=== PATIENT | male | born 1935 | race Caucasian/White ===

== ENCOUNTER → 2018-01-04 09:23 | Outpatient (CLI) | payer MEDICARE, BC, SELFPAY | PROVIDERS: PCP Family Medicine; Visit Provider Internal Medicine Cardiovascular Disease | DX: R42 Dizziness and giddiness (principal) | CPT/HCPCS: 0298T ==

== ENCOUNTER 2018-01-30 01:00 | Outpatient (CLI) | payer MEDICARE, BC, SELFPAY ==
--- NOTE | 2018-01-30 14:10 | MERGE_ITS ---
*[facility]* *[facility]* [address] [place] [address] Date of study: 01/30/2018 Transthoracic Echocardiography M-mode, complete 2D, complete spectral Doppler, and color Doppler *STUDY CONCLUSIONS* Impressions: The patient was in atrial fibrillation throughout study. This rhythm can interfere with accurate global and segmental wall motion analysis. Mildly reduced LV function, dilated RA/RV, severe TR. Summary: 1. Left ventricle: The cavity size was normal. Wall thickness was normal. Systolic function was mildly reduced. The estimated ejection fraction was 45-50%. Diffuse hypokinesis. 2. Aortic valve: There was trivial regurgitation. 3. Mitral valve: There was mild to moderate regurgitation directed eccentrically and posteriorly. 4. Left atrium: The atrium was mildly dilated. 5. Right ventricle: The cavity size was mildly dilated. Wall thickness was normal. Systolic function was low normal. 6. Right atrium: The atrium was moderately dilated. 7. Tricuspid valve: There was severe regurgitation. 8. Pulmonary arteries: Pulmonary systolic pressure was mildly increased. PA peak pressure: 35mm Hg (S). *PATIENT PRESENTATION* Height: 180.3cm ((71in) ) S/D Pressure: 112 / 77 Weight: 54.4kg ((119.7lb) ) BSA: 1.63m^2 Test start time: 02:10 PM. Test stop time: 03:10 PM. PERFORMING Unknown ORDERING Pierce Conde REFERRING Pierce Conde PERFORMING [facility] EMBROIDERY OPERATOR RT Bertha (R)(AMBER)ADILIA *PROCEDURE DATA* Procedure information: The patient was identified by two identifiers. This study was interpreted by [facility]. Pertinent images and digital data are archived for permanent storage and are available for subsequent review. Comparison was made to the study of 02/12/2013. Study status: Routine. Transthoracic echocardiography. M-mode, complete 2D, complete spectral Doppler, and color Doppler. A Transthoracic Echocardiogram was performed. Scanning was performed from the parasternal, apical, subcostal, and suprasternal notch acoustic windows. Images were obtained using an [id number] cardiac ultrasound machine. Study completion: The patient tolerated the procedure well. History: PMH: Persistent afib. *CARDIAC ANATOMY* Left ventricle: The cavity size was normal. Wall thickness was normal. Systolic function was mildly reduced. The estimated ejection fraction was 45-50%. Diffuse hypokinesis. Aortic valve: Trileaflet; mildly thickened leaflets. Mobility was not restricted. Doppler: Transvalvular velocity was within the normal range. There was no stenosis. There was trivial regurgitation. VTI ratio of LVOT to aortic valve: 0.79. Valve area (VTI): 2.7cm^2. Indexed valve area (VTI): 1.6cm^2/m^2. Peak velocity ratio of LVOT to aortic valve: 0.69. Valve area (Vmax): 2.3cm^2. Indexed valve area (Vmax): 1.4cm^2/m^2. Mean velocity ratio of LVOT to aortic valve: 0.73. Valve area (Vmean): 2.5cm^2. Indexed valve area (Vmean): 1.5cm^2/m^2. Mean gradient (S): 1.6mm Hg. Peak gradient (S): 2.7mm Hg. Aorta: Aortic root: The aortic root was normal in size. Mitral valve: Mildly thickened leaflets. Mobility was not restricted. Doppler: Transvalvular velocity was within the normal range. There was no evidence for stenosis. There was mild to moderate regurgitation directed eccentrically and posteriorly. Valve area by pressure half-time: 4.8cm^2. Indexed valve area by pressure half-time: 2.9cm^2/m^2. Peak gradient (D): 2.1mm Hg. Left atrium: The atrium was mildly dilated. Right ventricle: The cavity size was mildly dilated. Wall thickness was normal. Systolic function was low normal. Pulmonic valve: Doppler: Transvalvular velocity was within the normal range. There was no evidence for stenosis. There was mild regurgitation. Peak gradient (S): 0.8mm Hg. Tricuspid valve: Mildly thickened leaflets. Doppler: Transvalvular velocity was within the normal range. There was no evidence for stenosis. There was severe regurgitation. Pulmonary artery: Pulmonary systolic pressure was mildly increased. Right atrium: The atrium was moderately dilated. Pericardium: There was no pericardial effusion. Systemic veins: Inferior vena cava: Well visualized. The vessel was patent and normal in size. The respirophasic diameter changes were in the normal range (greater than or equal to 50%), consistent with normal central venous pressure. Baseline ECG: Atrial fibrillation. Measurements Left ventricle Value Reference LV ID, ED, PLAX 4.0 cm 3.5 - 6.0 LV ID, ES, PLAX 3.3 cm 2.1 - 4.0 LV PW thickness, ED, PLAX 0.9 cm LV end-diastolic volume, 1-p A2C 75 ml LV ejection fraction, 1-p A2C 49 % LV end-diastolic volume, 1-p A4C 62 ml LV ejection fraction, 1-p A4C 47 % LV e', lateral 0.125 m/sec LV E/e', lateral 6 LV e', medial 0.081 m/sec LV E/e', medial 9 LV e', average 0.103 m/sec LV E/e', average 7 Ventricular septum Value Reference IVS thickness, ED, PLAX 1.0 cm LVOT Value Reference LVOT ID, A-P 2.1 cm LVOT area 3.4 cm^2 LVOT peak velocity, S 0.56 m/sec LVOT mean velocity, S 0.44 m/sec LVOT VTI, S 9.4 cm LVOT peak gradient, S 1.3 mm Hg LVOT mean gradient, S 0.8 mm Hg Stroke volume (SV), LVOT DP 32 ml Stroke index (SV/bsa), LVOT DP 19 ml/m^2 Aortic valve Value Reference Aortic valve peak velocity, S 0.8 m/sec Aortic valve mean velocity, S 0.6 m/sec Aortic valve VTI, S 11.9 cm Aortic mean gradient, S 1.6 mm Hg Aortic peak gradient, S 2.7 mm Hg VTI ratio, LVOT/AV 0.79 Aortic valve area, VTI 2.7 cm^2 Velocity ratio, peak, LVOT/AV 0.69 Aortic valve area, peak velocity 2.3 cm^2 Velocity ratio, mean, LVOT/AV 0.73 Aortic valve area, mean velocity 2.5 cm^2 Aortic valve area/bsa, mean velocity 1.5 cm^2/m^2 Aorta Value Reference Aortic root ID, ED 3.2 cm Ascending aorta ID, A-P, S 3.0 cm RVOT Value Reference RVOT VTI, S 6.1 cm Left atrium Value Reference LA ID, A-P, ES 3.5 cm LA ID/bsa, A-P 2.2 cm/m^2 <=2.2 LA area, ES, A4C 22.8 cm^2 8.8 - 23.4 LA area, ES, A2C 20 cm^2 LA volume/bsa, ES, 1-p A4C 42 ml/m^2 LA volume, ES, 2-p 59 ml LA volume/bsa, ES, 2-p 36 ml/m^2 LA/aortic root ratio 1.11 Mitral valve Value Reference Mitral E-wave peak velocity 0.72 m/sec Mitral deceleration time 159 ms 150 - 230 Mitral pressure half-time 46 ms Mitral peak gradient, D 2.1 mm Hg Mitral valve area, PHT, DP 4.8 cm^2 Pulmonary arteries Value Reference PA pressure, S, DP (H) 35 mm Hg <=30 Tricuspid valve Value Reference Tricuspid regurg peak velocity 2.5 m/sec Tricuspid peak RV-RA gradient 25.5 mm Hg Right atrium Value Reference RA area, ES, A4C (H) 24.8 cm^2 8.3 - 19.5 Systemic veins Value Reference Estimated CVP 10 mm Hg Right ventricle Value Reference RV pressure, S, DP (H) 36 mm Hg <=30 Pulmonic valve Value Reference Pulmonic peak gradient, S 0.8 mm Hg Legend: (L) and (H) prince values outside specified reference range. I have personally reviewed the images and have reviewed and edited the reported findings. Electronically signed by Valarie Montes 01/30/2018 18:29
== END 2018-01-30 01:20 ==
PROVIDERS: PCP Family Medicine; Visit Provider Student in an Organized Health Care Education/Training Program
DX: I48.91 Unspecified atrial fibrillation (principal); I08.3 Combined rheumatic disorders of mitral, aortic and tricuspid valves; I51.7 Cardiomegaly
CPT/HCPCS: 93306; 71046

== ENCOUNTER 2018-01-30 05:46 | Outpatient (CLI) | payer MEDICARE, BC, SELFPAY ==
--- NOTE | 2018-01-30 12:55 | DI.RAD_ITS ---
SYMPTOMS/DIAGNOSIS: CHRONIC COUGH, R05 CHEST X-RAY, PA AND LATERAL: Comparison is 10/08/17. The heart size and pulmonary vasculature are within normal limits. The lungs are clear. The lungs do appear to be hyperinflated, raising the question of underlying COPD. No infiltrates, effusions or pneumothoraces are identified. Degenerative changes are seen in the spine. IMPRESSION: 1. No acute pulmonary process. 2. Hyperinflation of the lungs raising the question of underlying COPD.
== END 2018-01-30 06:06 ==
PROVIDERS: PCP Family Medicine; Visit Provider Internal Medicine
DX: R05 Cough (principal); R91.8 Other nonspecific abnormal finding of lung field
CPT/HCPCS: 71046

== ENCOUNTER → 2018-03-13 11:12 | Outpatient (BNVA) | payer MEDICARE, BC, SELFPAY | PROVIDERS: PCP Family Medicine; Visit Provider Student in an Organized Health Care Education/Training Program | DX: I48.1 Persistent atrial fibrillation (principal); I50.9 Heart failure, unspecified; Z79.01 Long term (current) use of anticoagulants; R53.82 Chronic fatigue, unspecified; I11.0 Hypertensive heart disease with heart failure | CPT/HCPCS: 99214 ==

== ENCOUNTER → 2018-06-20 10:57 | Outpatient (BNVA) | payer MEDICARE, BC, SELFPAY | PROVIDERS: PCP Family Medicine; Referring Provider Family Medicine; Visit Provider Orthopaedic Surgery | DX: M25.512 Pain in left shoulder (principal); I10 Essential (primary) hypertension; G89.29 Other chronic pain | CPT/HCPCS: 99211; 99213 ==

== ENCOUNTER 2018-06-25 00:41 | Outpatient (CLI) | payer MEDICARE, BC, SELFPAY ==
--- NOTE | 2018-06-25 09:36 | DI.MRI_ITS ---
SYMPTOM/DIAGNOSIS: LT SHOULDER PAIN, ? ROTATOR CUFF TEAR LEFT SHOULDER MRI: Proton density and fat suppressed T 2 coronal and T 1 and fat suppressed T 2 sagittal sequences were performed. The exam is limited by patient motion. There is spurring at the AC joint which also shows some fluid. There is fluid in the subacromial subdeltoid bursa. A subchondral cyst is seen in the humeral head. The rotator cuff tendons appear grossly intact. Degenerative changes are seen at the glenoid. IMPRESSION: Limited exam due to patient motion. Degenerative changes of the AC joint and glenohumeral joint. No rotator cuff tear is seen. There is fluid in the subacromial subdeltoid bursa which could indicate bursitis.
== END 2018-06-25 01:01 ==
PROVIDERS: PCP Family Medicine; Visit Provider Orthopaedic Surgery
DX: M25.512 Pain in left shoulder (principal); M19.012 Primary osteoarthritis, left shoulder
CPT/HCPCS: 73221

== ENCOUNTER → 2018-07-04 10:56 | Outpatient (BNVA) | payer MEDICARE, BC, SELFPAY | PROVIDERS: PCP Family Medicine; Referring Provider Family Medicine; Visit Provider Orthopaedic Surgery | DX: M19.012 Primary osteoarthritis, left shoulder (principal) | CPT/HCPCS: 99211; 99213 ==

== ENCOUNTER 2018-07-12 09:49 | Outpatient (CLI) | payer MEDICARE, BC, SELFPAY | END 2018-07-12 10:09 | PROVIDERS: PCP Family Medicine; Visit Provider Orthopaedic Surgery | DX: M25.512 Pain in left shoulder (principal); M19.012 Primary osteoarthritis, left shoulder; Z01.818 Encounter for other preprocedural examination; I10 Essential (primary) hypertension ==

== ENCOUNTER 2018-07-19 10:22 | Inpatient (IN) | payer MEDICARE, BC, SELFPAY ==
[2018-07-19] VITALS (29 sets, daily range): BP systolic 83–143; BP diastolic 56–110; PULSE 55–120; RESP 12–21; TEMP 35.9–36.6; O2SAT 95–100
[2018-07-19] MEDS: Lactated Ringers 1,000 ML 80 ML IV ×3 (07:04→14:17)
[2018-07-19] MEDS: methylPREDNISolone ACETATE 80 MG/ML VIAL (08:09)
--- NOTE | 2018-07-19 09:02 | DI.CT_ITS ---
SYMPTOM/DIAGNOSIS: HYPOXIA, HYPOTENSION, ? PE, ? STROKE NONCONTRAST HEAD CT: A noncontrast cranial CT was performed. There is moderate generalized cerebral atrophy. There is no evidence of acute intracranial hemorrhage, mass effect or midline shift. Note is made of apparent chronic sinus disease involving the frontal, ethmoid, maxillary and sphenoid sinuses. The mastoid air cells are clear as visualized. Orbital and temporal bone structures appear intact. CONCLUSION: No evidence of acute intracranial process. PE CHEST CT: CT angiography was performed with multi slice acquisition and multi planar and 3D reconstruction. CT angiography of the chest was performed with a bolus infusion of 100 cc's of Omnipaque 350. There is an endotracheal tube in position. The lungs are clear and normally expanded. No pleural effusion is seen. No mediastinal or hilar adenopathy is seen. Tracheobronchial tree appears intact. No evidence of pulmonary embolic disease. Bolus timing was excellent for pulmonary arterial circulation but the aorta is non opacified. Images obtained through the upper abdomen show grossly unremarkable appearance of visualized portions of the liver, spleen, adrenals, kidneys and pancreas. CONCLUSION: No evidence of pulmonary embolic disease.
[2018-07-19 09:13] LABS: BE -0.3 mmol/L (-3-3); HCO3 26 mmol/L (22-28); pCO2 51 mmHg (34-47); pH 7.32 (7.35-7.45); pO2 545 mmHg (83-108)
[2018-07-19 09:16] LABS: Abs Immature Grans 0.01 k/cumm (0.0-0.09); Absolute Basophil Count 0.03 k/cumm (0.0-0.2); Absolute Lymphocyte Count 0.94 k/cumm (1.2-3.4); Absolute Monocyte Count 0.39 k/cumm (0.11-0.7); Absolute Neutrophil Count 5.62 k/cumm (1.2-6.7); Basophils % 0.4; Eosinophils % 4.1; HCT 36.9 % (40.0-50.0); HGB 12.3 g/dL (13.5-17.5); Immature Grans % 0.1; Lymphocytes % 12.9; Mean Corp. HGB Concentration 33.3 g/dL (32.0-36.0); Mean Corpuscular Hemoglobin 33.2 pg (27.0-33.0); Mean Corpuscular Volume 99.7 fL (80-95); Monocytes % 5.3; Neutrophils % 77.2; Platelet Count 169 x1000/uL (130-400); RBC Distribution Width 12.2 % (11.8-14.1); White Blood Cell Count 7.29 k/cumm (4.4-10.8)
[2018-07-19 09:32] LABS: ALT 8 U/L (12-78); AST 16 U/L (15-37); Albumin 2.6 g/dL (3.4-5.0); Alkaline Phosphatase 77 U/L (46-116); Anion Gap 5.9 mmol/L (3-11); BUN 25 mg/dL (7-18); CO2 27.1 mmol/L (21.0-32.0); CREATININE 1.04 mg/dL (0.70-1.30); Calcium 7.6 mg/dL (8.5-10.1); Chloride 109 mmol/L (98-107); Glucose 143 mg/dL (70-100); Potassium 4.7 mmol/L (3.5-5.1); Sodium 142 mmol/L (136-145); Total Protein 5.8 g/dL (6.4-8.2); Troponin I 0.06 ng/mL (0.00-0.06)
[2018-07-19] MEDS: Omnipaque 350 MG/ML 100 ML BTL IJ (09:40)
[2018-07-19 09:42] LABS: D-Dimer 359 ng/mlFEU (<500)
[2018-07-19] MEDS: Lactated Ringers 1,000 ML 50 ML IV (10:10)
[2018-07-19 10:48] LABS: sO2 > 99 % (94-98)
[2018-07-19 12:02] LABS: ALT 7 U/L (12-78); AST 21 U/L (15-37); Albumin 3.1 g/dL (3.4-5.0); Alkaline Phosphatase 95 U/L (46-116); Anion Gap 7.3 mmol/L (3-11); BUN 24 mg/dL (7-18); Bilirubin, Total 1.1 mg/dL (0.2-1.0); CO2 27.7 mmol/L (21.0-32.0); Calcium 8.2 mg/dL (8.5-10.1); Chloride 107 mmol/L (98-107); Glucose 99 mg/dL (70-100); Magnesium 1.9 mg/dL (1.8-2.4); Potassium 4.4 mmol/L (3.5-5.1); Sodium 142 mmol/L (136-145); Total Protein 6.7 g/dL (6.4-8.2); Troponin I 0.05 ng/mL (0.00-0.06)
--- NOTE | 2018-07-19 12:51 | HPE_ITS ---
Date of service: 07/19/18 Time of Service: 12:41 Assessment and Plan (1) Altered mental state: Current visit: Yes Status: Acute Patient developed altered mental status, obtundation after the induction of anesthesia. He did not come out of anesthesia in a normal manner. He had some low blood pressures, did not respond to commands. There was initial concern for acute cerebrovascular accident but this was ruled out with a normal head CT and subsequent normalization of his mental status. At this point it appears that he had an unusual reaction to anesthetic medications requiring prolonged time for clearance of the medication (propofol) . Fortunately he appears to be clearing and is stable for transfer from the PACU to the medical surgical floor. We will continue to monitor in observation status overnight. (2) Left shoulder pain: Current visit: No Status: Chronic Patient was admitted for elective left distal clavicle resection. He did not get the surgical procedure because of the complications noted above. Dr. Betancur was able to inject the shoulder while he was out. He may see some benefit from the steroid injection. Further follow-up with Dr. Betancur as an outpatient. Qualifiers: Chronicity: chronic Qualified Code(s): M25.512 - Pain in left shoulder; G89.29 - Other chronic pain History of Present Illness Chief Complaint: Hypotension/ Alterred Mental Status Narrative: This is an 83-year-old man who presented today for elective surgical excision of his left distal clavicle for chronic left shoulder pain. He was brought to the operating room and was being induced for anesthesia when his blood pressure dropped to 84/54. They were unable to get pulse oximetry readings. His anesthesia was stopped and he was started on ephedrine and got 40 mg of vasopressin which seemed to help his blood pressure. Despite full reversal of his anesthetic agents he remained unresponsive. Dr. Betancur called us down to the operating room to evaluate him for the possibility of stroke. He was intubated with an endotracheal tube to replace the LMA. He was brought to the CAT scanner and had a CAT scan of the head and CTA of the chest. There was no evidence of a CVA. There was no evidence of a PE. He was brought back to the PACU and monitored on the vent. We cut back on his sedation and reversed his paralytic over the next hour. He was given a spontaneous breathing trial and did well so he was extubated at 10:34 AM. He was able to breathe on his own and manage his secretions well and over the next 30 minutes his sensorium seemed to clear and he began to wake up and respond appropriately. He is being admitted to [facility] for further monitoring and observation status. Review of Systems Review of Systems He was initially obtunded and unable to give a review of systems. Once he woke up he was able to let us know that he had no specific concerns or complaints Constitutional Reports system reviewed and no additional complaints, except as docu Cardiovascular Denies chest pain at rest Respiratory Reports system reviewed and no additional complaints, except as docu Gastrointestinal Reports system reviewed and no additional complaints, except as docu Genitourinary Reports system reviewed and no additional complaints, except as docu Musculoskeletal Reports system reviewed and no additional complaints, except as docu Comments: Left shoulder discomfort was not an immediate problem. Neurologic Reports as per [facility] Psychiatric Reports depression and Reports other (Easily becomes tearful, still talking about his who is ) [facility] Medical History Atrial fibrillation Essential hypertension Glaucoma Hiatal hernia Reflex sympathetic dystrophy of upper extremity Surgical History Colonoscopy - MAC HEMITHYROIDECTOMY Family History Mother Heart disease Father Heart disease Sister No problems noted. Brother No problems noted. Grandfather Diabetes Grandfather No problems noted. Social History Smoking and Tabacco status: Former Tobacco Use Meds Home Medications Medication Instructions Recorded Confirmed Type dorzolamide 1 drp OPHTHALMIC BID drp 07/31/12 07/19/18 History [id number]-lycopen-lutein 1 tab PO DAILY 08/01/13 07/19/18 History [Centrum Silver Tablet] levothyroxine 88 mcg PO DAILY #60 tab-cap 09/10/17 07/19/18 Rx apixaban [Eliquis] 2.5 mg PO BID #60 tab-cap 09/27/17 07/19/18 Rx diltiazem HCl [Cartia XT] 120 mg PO DAILY 07/12/18 07/19/18 History mirtazapine 15 mg PO HS 07/12/18 07/19/18 History Allergies Allergy/AdvReac Type Severity Reaction Status Date / Time No Known Allergies Allergy Verified 07/19/18 06:36 Exam Narrative Exam Narrative: My initial encounter with him he was completely obtunded and unable to respond to commands. He would flinch and pushed her hand away to any noxious stimuli. He appeared to be using all 4 extremities without any apparent decrement of function. As noted in HPI once extubated and over an ensuing 30- minute time. He began to wake up and communicate coherently Const Nutritional Appearance: average body habitus Orientation: obtunded (Woke up and became coherent after extubation) HENMT Head: normal to inspection Ears: hearing grossly normal bilaterally Face and sinus: normal facial exam Mouth: oral mucosae normal Teeth and gingiva: dentition normal Eyes Pupils: PERRL (About 2 mm) Neck Neck: normal visual inspection Thyroid: thyroid normal (Status post hemithyroidectomy) Chest Chest: normal inspection of the chest Resp Effort & Inspection: normal respiratory effort Auscultation: clear to auscultation bilaterally Cardio Rate: regular rate Rhythm: regular rhythm GI Inspection: normal to inspection Palpation: soft and nontender Male General Exam: Yes normal external exam (Vogel catheter draining clear urine) Back/Spine/Pelvis Thoracic/Lumbar Spine: thoracic and lumbar spine normal to inspection Skin General skin exam: no rashes or lesions noted Neuro General: moves all extremities Speech: speech normal Motor: strength 5/5 throughout Sensory Exam: no sensory deficits noted Extrem General: no edema Psych Mental Status: other (Previously obtunded he was groggy but gradually regaining function) Speech and Movement: speech and movement normal Mood: labile mood and other (Previously obtunded he was groggy but gradually regaining function) Affect: sad Attitude: cooperative Thought Process: impoverished Thought Content: normal Insight: fair Results Imaging CT scan - chest: report reviewed (CT angiogram showed no evidence of PE) Imaging Studies: Head CT showed no evidence of CVA or other abnormality Labs : 07/19/18 08:50 07/19/18 11:40 Laboratory Results - last 24 hr 07/19/18 07/19/18 07/19/18 08:42 08:42 08:50 WBC Cancelled 7.29 RBC Cancelled 3.70 L Hgb Cancelled 12.3 L Hct Cancelled 36.9 L MCV Cancelled 99.7 H MCH Cancelled 33.2 H MCHC Cancelled 33.3 RDW Cancelled 12.2 Plt Count Cancelled 169 MPV Cancelled 11.0 Immature Gran % 0.1 Neutrophils % 77.2 Lymphocytes % 12.9 Monocytes % 5.3 Eosinophils % 4.1 Basophils % 0.4 Absolute Neutrophils 5.62 Absolute Lymphocytes 0.94 L Absolute Monocytes 0.39 Absolute Eosinophils 0.30 Absolute Basophils 0.03 D-Dimer Sample Site pCO2 pO2 O2 Saturation ABG pH ABG HCO3 ABG Total CO2 ABG Base Excess Oxygen Liter Flow FiO2 Sodium Cancelled Potassium Cancelled Chloride Cancelled Carbon Dioxide Cancelled Anion Gap Cancelled BUN Cancelled Creatinine Cancelled Estimated GFR/1.73 m2 Cancelled Glucose Cancelled Calcium Cancelled Magnesium Total Bilirubin Cancelled AST Cancelled ALT Cancelled Alkaline Phosphatase Cancelled Troponin I Cancelled Total Protein Cancelled Albumin Cancelled 07/19/18 07/19/18 07/19/18 08:50 08:50 08:50 WBC RBC Hgb Hct MCV MCH MCHC RDW Plt Count MPV Immature Gran % Neutrophils % Lymphocytes % Monocytes % Eosinophils % Basophils % Absolute Neutrophils Absolute Lymphocytes Absolute Monocytes Absolute Eosinophils Absolute Basophils D-Dimer 359 Sample Site Not Applicable pCO2 51 H pO2 545 H O2 Saturation > 99 H ABG pH 7.32 L ABG HCO3 26 ABG Total CO2 ABG Base Excess -0.3 Oxygen Liter Flow FiO2 Sodium 142 Potassium 4.7 Chloride 109 H Carbon Dioxide 27.1 Anion Gap 5.9 BUN 25 H Creatinine 1.04 Estimated GFR/1.73 m2 >= 60.00 Glucose 143 H Calcium 7.6 L Magnesium Total Bilirubin 1.0 AST 16 ALT 8 L Alkaline Phosphatase 77 Troponin I 0.06 Total Protein 5.8 L Albumin 2.6 L 07/19/18 07/19/18 07/19/18 08:54 09:11 11:40 WBC RBC Hgb Hct MCV MCH MCHC RDW Plt Count MPV Immature Gran % Neutrophils % Lymphocytes % Monocytes % Eosinophils % Basophils % Absolute Neutrophils Absolute Lymphocytes Absolute Monocytes Absolute Eosinophils Absolute Basophils D-Dimer Sample Site Cancelled Cancelled pCO2 Cancelled Cancelled pO2 Cancelled Cancelled O2 Saturation Cancelled Cancelled ABG pH Cancelled Cancelled ABG HCO3 Cancelled Cancelled ABG Total CO2 Cancelled Cancelled ABG Base Excess Cancelled Cancelled Oxygen Liter Flow Cancelled Cancelled FiO2 Cancelled Cancelled Sodium 142 Potassium 4.4 Chloride 107 Carbon Dioxide 27.7 Anion Gap 7.3 BUN 24 H Creatinine 1.00 Estimated GFR/1.73 m2 >= 60.00 Glucose 99 Calcium 8.2 L Magnesium 1.9 Total Bilirubin 1.1 H AST 21 ALT 7 L Alkaline Phosphatase 95 Troponin I 0.05 Total Protein 6.7 Albumin 3.1 L Last Vital Signs Temp 36.6 C 07/19/18 12:23 Pulse 90 07/19/18 12:23 Resp 19 07/19/18 12:23 BP 133/80 07/19/18 12:23 Pulse Ox 95 07/19/18 12:23
[2018-07-19 13:43] LABS: Troponin I 0.05 ng/mL (0.00-0.06)
--- NOTE | 2018-07-19 14:14 | ROE_ITS ---
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 POSTOPERATIVE DIAGNOSIS: Same. PROCEDURE: Attempted excision left distal clavicle, aborted. SURGEON: Marco Betancur M.D. OBSTETRICIAN AND GYNAECOLOGIST: Gabbi Montalvo PA-C ANESTHESIA: General via LMA by Shiela Guillen CRNA INDICATIONS: This patient is an 83-year-old male who has been troubled by bilateral shoulder pain, i nitially worse on the left side, and now he's having some symptoms on the right. He failed to respon d to conservative treatments. He underwent an MRI which showed severe AC joint arthritis and a large osteophyte inferiorly, impinging on the rotator cuff. He showed evidence of inflammation of the rot ator cuff, particularly involving the supraspinatus; but no evidence of any full-thickness tear. He was also showing some signs of dementia, although he is able to manage his affairs fairly well. He's often forgetful, calling the office frequently to try to verify appointments and appropriate medicat ions. We had arranged to have his pharmacy prepare his meds on a daily schedule, because he had been on Eliquis for chronic atrial fibrillation. This was stopped 5 days to todays' planned procedure. He also takes Diltiazem for rate control of his atrial fibrillation. He's had an echocardiogram that did not show any significant abnormalities. The patient was greeted in the Day Surgery holding area. I marked his shoulder. He was alert, orien vickey and anxious to proceed. He was brought to the operating suite and under Propofol anesthesia, as we did not want to use inhala tional gases to exacerbate his early dementia, he had an LMA placed. He had mild hypotension at this point and this was initially treated with pressors. We also had difficulty getting a good pulse oxi metry measurement, it was somewhat intermittent. We finally got fairly consistent pulse oximetry karen surements in his second toe, and eventually on his nasal ala. His pulse oximetry values were in the 90's to 100. However, his hypotension persisted, and when we put him in the beach chair position, it was exacerbated and did not respond to pressors. It was felt that it was unsafe to proceed with any type of surgery, and no incision was made. Sterile drapes had been applied but no incision was made . At this point we elected to abort the procedure for some unknown cardiac event or perhaps a CVA or pulmonary embolism. I did inject his AC joint with Depo-Medrol and 6 cc's of Marcaine, 0.5%, to provide him at least with some analgesia, assuming that the patient would wake up from the LMA/Propofol anesthesia. However, this was not the case. The patient continued to have relative hypotension and poor perfusion. His p upils were reactive but sluggish, and they were symmetrical. At this point the concern was raised th at he may have sustained a stroke, or perhaps a pulmonary embolism. While still having the L[facility] in [facility], I consulted personally with the hospitalists, both Dr. Arreaga and Dr. Rose. Dr. Rose came do wn to the Operating Room to review the situation. The plan at that point was to obtain a CT scan of the head. In addition to that, Dr. Arreaga's recommendation to get a CTA for a pulmonary embolism. The patient was starting to show motion of the upper and lower extremities, but he was still not steven thing independently on his own, and it was felt that even with the LMA removed, which was helpful in decreasing his combative behavior, he was still not appropriately responding to simple cessation of a nesthesia. The decision was then made to intubate he patient to get a CT scan - this would allow us to control his airway and also to allow an appropriate study being done. The CT scan was then done of the head without contrast. It did not show any intracranial process. T he CTA did not show any evidence of pulmonary embolism. The patient was brought back to the Recovery Room, still intubated, and over time he was gradually ex tubated and awoke with complete recovery of his faculties and no evidence of an acute intracerebral o r intracardiac process. His Troponin was .06, D-dimer was within normal limits; CBC showed a hemoglo bin of 12, white count of 7000, electrolyte function and creatinine were normal. The etiology of his failure to maintain a pressure under anesthesia and failure to wake up when the anesthesia, specific ally Propofol, was stopped is unclear at this time. He will be admitted for observation in the Intensive Care Unit. He has an arterial line in place.
[2018-07-19] MEDS: Normal Saline 1,000 ML 30 ML IV (14:58)
[2018-07-19] MEDS: Dorzolamide 2% 10 ML BTL OD (20:15)
[2018-07-19] MEDS: Mirtazapine 15 MG TAB PO (22:39)
[2018-07-20] VITALS (9 sets, daily range): BP systolic 102–119; BP diastolic 57–72; PULSE 85–127; RESP 17–20; TEMP 35.9–36.8; O2SAT 98–100
[2018-07-20] MEDS: Levothyroxine 88 MCG TAB PO (06:11)
[2018-07-20 07:12] LABS: Abs Immature Grans 0.02 k/cumm (0.0-0.09); Absolute Basophil Count 0.01 k/cumm (0.0-0.2); Basophils % 0.1; HCT 39.6 % (40.0-50.0); HGB 13.2 g/dL (13.5-17.5); Immature Grans % 0.1; Lymphocytes % 4.5; Mean Corp. HGB Concentration 33.3 g/dL (32.0-36.0); Mean Platelet Volume 10.7 fL (8.0-11.0); Neutrophils % 94.3; Platelet Count 171 x1000/uL (130-400); RBC Distribution Width 12.1 % (11.8-14.1); White Blood Cell Count 13.37 k/cumm (4.4-10.8)
[2018-07-20 07:13] LABS: Absolute Monocyte Count 0.13 k/cumm (0.11-0.7); Absolute Neutrophil Count 12.61 k/cumm (1.2-6.7)
[2018-07-20 07:22] LABS: Anion Gap 8.4 mmol/L (3-11); BUN 23 mg/dL (7-18); CO2 25.6 mmol/L (21.0-32.0); CREATININE 0.97 mg/dL (0.70-1.30); Calcium 8.1 mg/dL (8.5-10.1); Chloride 106 mmol/L (98-107); Glucose 128 mg/dL (70-100); Magnesium 1.8 mg/dL (1.8-2.4); Potassium 4.4 mmol/L (3.5-5.1); Sodium 140 mmol/L (136-145)
--- NOTE | 2018-07-20 08:43 | PGE_ITS ---
Date of Service Date of service: 07/20/18 Time of Service: 08:32 Assessment and Plan (1) Altered mental state: Current visit: Yes Status: Acute Atypical reaction to general anesthesia and specifically to propofol. No other anesthetic agents involved. I reviewed patients anesthetic records from [facility] thyroid surgery from 2017 and patient did have propofol, dilaudid, midazolam, and sevoflourane. He did have some hypotension on that occasion with systolic pressure in low 90s. This was not as extreme as our experience with blood pressures as low as 50's/48. Case discussed in detail with patient and his family as well as with hospitalist Dr. Santo. We will keep the patient overnight for one more day of observation and telemetry. D/C iv and redd in anticipation of discharge home tomorrow. Patient and family agree. Subjective Interval history since last seen: Awake, alert and orented. Daughter and her family had spent the night in patientsw room. Patients care and condition during anesthesia and attenmoted surgery discuswswed in detail including the negative head c.t. and negative c.t for pulmonary embolism. Patient has no recollection of any distress. His left shoulder feels better from the injection. Exam Extrem Other: Alert and oriented x 3. Able to move shoulder well. Redd catheter draining clear urine. Laabs unremarkable. Objective Objective Clinical Data: Abnormal lab results 07/19/18 07/19/18 07/19/18 Range/Units 08:50 08:50 08:50 WBC (4.4-10.8) k/cumm RBC 3.70 L (4.50-6.00) m/cumm Hgb 12.3 L (13.5-17.5) g/dL Hct 36.9 L (40.0-50.0) % MCV 99.7 H (80-95) fL MCH 33.2 H (27.0-33.0) pg Absolute Neutrophils (1.2-6.7) k/cumm Absolute Lymphocytes 0.94 L (1.2-3.4) k/cumm pCO2 51 H (34-47) mmHg pO2 545 H (83-108) mmHg O2 Saturation > 99 H (94-98) % ABG pH 7.32 L (7.35-7.45) Chloride 109 H (98-107) mmol/L BUN 25 H (7-18) mg/dL Glucose 143 H (70-100) mg/dL Calcium 7.6 L (8.5-10.1) mg/dL Total Bilirubin (0.2-1.0) mg/dL ALT 8 L (12-78) U/L Total Protein 5.8 L (6.4-8.2) g/dL Albumin 2.6 L (3.4-5.0) g/dL 07/19/18 07/20/18 07/20/18 Range/Units 11:40 06:50 06:50 WBC 13.37 H D (4.4-10.8) k/cumm RBC 4.00 L (4.50-6.00) m/cumm Hgb 13.2 L (13.5-17.5) g/dL Hct 39.6 L (40.0-50.0) % MCV 99.0 H (80-95) fL MCH (27.0-33.0) pg Absolute Neutrophils 12.61 H (1.2-6.7) k/cumm Absolute Lymphocytes 0.60 L (1.2-3.4) k/cumm pCO2 (34-47) mmHg pO2 (83-108) mmHg O2 Saturation (94-98) % ABG pH (7.35-7.45) Chloride (98-107) mmol/L BUN 24 H 23 H (7-18) mg/dL Glucose 128 H (70-100) mg/dL Calcium 8.2 L 8.1 L (8.5-10.1) mg/dL Total Bilirubin 1.1 H (0.2-1.0) mg/dL ALT 7 L (12-78) U/L Total Protein (6.4-8.2) g/dL Albumin 3.1 L (3.4-5.0) g/dL Vital Signs Temperature 97.7 F 07/20/18 05:57 Temperature Source Tympanic 07/20/18 05:57 Pulse 93 H 07/20/18 07:53 Pulse Rhythm Irregular 07/20/18 01:50 Respiratory Rate 17 07/20/18 05:57 Respiratory Effort 07/20/18 01:50 Respiratory Depth Shallow 07/20/18 01:50 Respiratory Pattern Normal 07/19/18 06:24 Blood Pressure 102/69 07/20/18 05:57 Pulse Oximetry 99 07/20/18 05:57 Respiratory End-tidal CO2 33 07/19/18 11:35 Oxygen Delivery Method Nasal Cannula 07/20/18 05:57 Oxygen Flow Rate 1 07/20/18 05:57 Fraction of Inspired Oxygen (FIO2) 21 07/19/18 10:24 Pain Level 0 07/19/18 13:23 Intake & Output 07/19/18 07/19/18 07/20/18 11:59 23:59 11:59 Intake Total 1500 / 2138.667 638.667 / 2138.667 Output Total 1050 / 1050 700 / 700 Balance 1500 / 1088.667 -411.333 / 1088.667 -700 / -700 Weight 150 lb 2.157 oz 145 lb 4.554 oz Intake: IV 1500 / 2138.667 638.667 / 2138.667 Output: Urine 1050 / 1050 700 / 700 Other: Urine Color Light Ramona Yellow Urine Appearance Clear Clear Comment PACU. PACU. Stool Size Small Stool Characteristics Formed Green Emesis Description None None Laboratory Results WBC 13.37 k/cumm (4.4-10.8) H D 07/20/18 06:50 RBC 4.00 m/cumm (4.50-6.00) L 07/20/18 06:50 Hgb 13.2 g/dL (13.5-17.5) L 07/20/18 06:50 Hct 39.6 % (40.0-50.0) L 07/20/18 06:50 MCV 99.0 fL (80-95) H 07/20/18 06:50 MCH 33.0 pg (27.0-33.0) 07/20/18 06:50 MCHC 33.3 g/dL (32.0-36.0) 07/20/18 06:50 RDW 12.1 % (11.8-14.1) 07/20/18 06:50 Plt Count 171 x1000/uL (130-400) 07/20/18 06:50 MPV 10.7 fL (8.0-11.0) 07/20/18 06:50 Immature Gran % 0.1 07/20/18 06:50 Neutrophils % 94.3 07/20/18 06:50 Lymphocytes % 4.5 07/20/18 06:50 Monocytes % 1.0 07/20/18 06:50 Eosinophils % 0.0 07/20/18 06:50 Basophils % 0.1 07/20/18 06:50 Absolute Neutrophils 12.61 k/cumm (1.2-6.7) H 07/20/18 06:50 Absolute Lymphocytes 0.60 k/cumm (1.2-3.4) L 07/20/18 06:50 Absolute Monocytes 0.13 k/cumm (0.11-0.7) 07/20/18 06:50 Absolute Eosinophils 0.00 k/cumm (0.0-0.7) 07/20/18 06:50 Absolute Basophils 0.01 k/cumm (0.0-0.2) 07/20/18 06:50 D-Dimer 359 ng/mlFEU (<500) 07/19/18 08:50 Sample Site Not Applicable 07/19/18 08:50 pCO2 51 mmHg (34-47) H 07/19/18 08:50 pO2 545 mmHg (83-108) H 07/19/18 08:50 O2 Saturation Cancelled 07/19/18 08:54 ABG pH 7.32 (7.35-7.45) L 07/19/18 08:50 ABG HCO3 26 mmol/L (22-28) 07/19/18 08:50 ABG Total CO2 Cancelled 07/19/18 08:54 ABG Base Excess -0.3 mmol/L (-3-3) 07/19/18 08:50 Oxygen Liter Flow Cancelled 07/19/18 08:54 FiO2 Cancelled 07/19/18 08:54 Sodium 140 mmol/L (136-145) 07/20/18 06:50 Potassium 4.4 mmol/L (3.5-5.1) 07/20/18 06:50 Chloride 106 mmol/L (98-107) 07/20/18 06:50 Carbon Dioxide 25.6 mmol/L (21.0-32.0) 07/20/18 06:50 Anion Gap 8.4 mmol/L (3-11) 07/20/18 06:50 BUN 23 mg/dL (7-18) H 07/20/18 06:50 Creatinine 0.97 mg/dL (0.70-1.30) 07/20/18 06:50 Estimated GFR/1.73 m2 >= 60.00 (mL/min/1.73m2) 07/20/18 06:50 Glucose 128 mg/dL (70-100) H 07/20/18 06:50 Calcium 8.1 mg/dL (8.5-10.1) L 07/20/18 06:50 Magnesium 1.8 mg/dL (1.8-2.4) 07/20/18 06:50 Total Bilirubin 1.1 mg/dL (0.2-1.0) H 07/19/18 11:40 AST 21 U/L (15-37) 07/19/18 11:40 ALT 7 U/L (12-78) L 07/19/18 11:40 Alkaline Phosphatase 95 U/L (46-116) 07/19/18 11:40 Troponin I 0.05 ng/mL (0.00-0.06) 07/19/18 13:13 Total Protein 6.7 g/dL (6.4-8.2) 07/19/18 11:40 Albumin 3.1 g/dL (3.4-5.0) L 07/19/18 11:40
[2018-07-20] MEDS: Apixaban 2.5 MG TAB PO ×2 (09:17→21:31)
[2018-07-20] MEDS: Dorzolamide 2% 10 ML BTL OD ×2 (09:18→21:31)
--- NOTE | 2018-07-20 16:51 | NUR.NOTE ---
Nursing Note: patients Mentation has improved this afternoon, he has identified his location, the day, and that he was here for a shoulder revision, and had no idea what happened after that. He is pleasant and cooperative, still impulsive at times but redirectable
--- NOTE | 2018-07-20 17:55 | NUR.NOTE ---
Nursing Note: It has been noted that the patients heart rate increases with any activity, It is noted that the rate decreases as soon as the activity is completed
--- NOTE | 2018-07-20 18:24 | PDOC.CMIN ---
- If Service Date Differs Date of service: 07/20/18 Time of Service: 18:24 Care Management Initial Assess PAST MEDICAL HISTORY/PAST SURGICAL HISTORY:: Atrial fibrillation, hypertension, glaucoma, hiatal hernia, intolerance to propofol, left shoulder pain chronic. Surgical history includes hemithyroidectomy, and colonoscopy PREVIOUS FUNCTIONAL STATUS/SOCIAL/FAMILY SUPPORTS:: Yuan lives in [place] he has 2 sons that live with him part-time and a daughter that is a full-time RN at [employer]. True was in the [employer] branch, he is 60% service connected. He [facility]. True is his spouse in December 2017. He states he did have Meals on Wheels however stopped the service. He states he is able to cook his own meals, and that he is independent with care. CURRENT FUNCTIONAL STATUS:: True makes good eye contact and is engaged during assessment. He states he been having a lot of shoulder pain prior to plan for surgical procedure. The pain does keep him awake at night. He states when he is medically ready he will go home, declines any services. ADVANCE DIRECTIVES:: None on file he would like to complete during this admission. Has patient been provided with information about the portal?: Yes Did the patient sign up for the portal?: No CODE STATUS:: Full Code INSURANCE COVERAGE / FINANCIAL ISSUES:: Medicare, Blue Cross Blue Shield. CURRENT HOME/COMMUNITY SERVICES/EQUIPMENT:: No current services. PRIMARY CARE PHYSICIAN:: [facility] POTENTIAL DISCHARGE NEEDS:: Follow-up appointment scheduled with primary care, and follow-up with Dr. Betancur as directed. PATIENT/FAMILY EDUCATION NEEDS:: Discharge education, follow-up plan of care, limitations, ask me 3 and self-management. ANTICIPATED BARRIERS TO DISCHARGE:: None identified. TRANSPORTATION:: Private car with family at time of discharge. PLAN:: True will be discharged home when medically ready, he remains on telemetry. He has a history of atrial fibrillation, he is on Eliquis. Plan will be for True to be discharged home when medically ready, no additional services. CM will assist patient in completing advanced directive during this admission with patient.
--- NOTE | 2018-07-20 18:33 | INITIAL_ITS ---
- If Service Date Differs Date of service: 07/20/18 Time of Service: 18:24 Care Management Initial Assess PAST MEDICAL HISTORY/PAST SURGICAL HISTORY:: Atrial fibrillation, hypertension, glaucoma, hiatal hernia, intolerance to propofol, left shoulder pain chronic. Surgical history includes hemithyroidectomy, and colonoscopy PREVIOUS FUNCTIONAL STATUS/SOCIAL/FAMILY SUPPORTS:: Yuan lives in [place] he has 2 sons that live with him part-time and a daughter that is a full- time RN at [employer]. True was in the [employer] branch, he is 60% service connected. He receives his care at [facility]. True is his spouse in December 2017. He states he did have Meals on Wheels however stopped the service. He states he is able to cook his own meals, and that he is independent with care. CURRENT FUNCTIONAL STATUS:: True makes good eye contact and is engaged during assessment. He states he been having a lot of shoulder pain prior to plan for surgical procedure. The pain does keep him awake at night. He states when he is medically ready he will go home, declines any services. ADVANCE DIRECTIVES:: None on file he would like to complete during this admission. Has patient been provided with information about the portal?: Yes Did the patient sign up for the portal?: No CODE STATUS:: Full Code INSURANCE COVERAGE / FINANCIAL ISSUES:: Medicare, Blue Cross Blue Shield. CURRENT HOME/COMMUNITY SERVICES/EQUIPMENT:: No current services. PRIMARY CARE PHYSICIAN:: [facility] POTENTIAL DISCHARGE NEEDS:: Follow-up appointment scheduled with primary care, and follow-up with Dr. Betancur as directed. PATIENT/FAMILY EDUCATION NEEDS:: Discharge education, follow-up plan of care, limitations, ask me 3 and self-management. ANTICIPATED BARRIERS TO DISCHARGE:: None identified. TRANSPORTATION:: Private car with family at time of discharge. PLAN:: True will be discharged home when medically ready, he remains on te lemetry. He has a history of atrial fibrillation, he is on Eliquis. Plan will be for True to be discharged home when medically ready, no additional services. CM will assist patient in completing advanced directive during this admission with patient.
--- NOTE | 2018-07-20 18:58 | NUR.NOTE ---
Nursing Note: spoke to the patients daughter , updated her on patients afternoon , advised her that his mentation seemed better, that he has been voiding spontaneously after redd removal. Also told her of rate increases with activity, she is going to discuss this with patients PCP Sunday
--- NOTE | 2018-07-20 19:11 | W.PM.PROGNOT ---
Date of Service Date of service: 07/20/18 Time of Service: 19:12 Assessment and Plan (1) Altered mental state: Current visit: Yes Status: Acute Altered mental status with concurrent hypotension, noted hypoxia, and overall deterioration immediately following induction of anesthesia with Propofol. Patient required intubation and pressor therapy initially, with rapid return to normal and full recovery of mental status. Blood Pressure and HR are also currently well-controlled. Patient developed altered mental status, obtundation after the induction of anesthesia. Work-up including labs, Cardiac Biomarkers, and imaging with Brain CT and CT of the chest were essentially negative. Suspect secondary to reaction to anesthesia - potentially propofol. Recommend resumption of normal home meds, with continued monitoring on telemetry and with Q4 vitals. If continued stability will likely be okay to discharge by tomorrow. Subjective Interval history since last seen: 83-year-old man who presented on 07/19 for elective surgical excision of his left distal clavicle for chronic left shoulder pain. Patient was brought to the operating room and was being induced for anesthesia when his blood pressure dropped significantly, with subsequent difficulty in obtaining a pulse ox, along with an altered mental status. His anesthesia was stopped and he was started on ephedrine and got 40 mg of vasopressin. Despite full reversal of his anesthetic agents he remained unresponsive. Patient was ultimately intubated. CT imaging of his head and Chest were negative. He was brought back to the PACU and monitored on the vent. His sedation and paralytic were decreased and reversed, and was successfully extubated. This morning the patient has no complaints. No overnight events reported. Remains afebrile. Exam Narrative Exam Narrative: General: Patient appears comfortable, AAOX3, NAD Neck: Supple CV: Irregularly Irregular, mildly tachycardic. Pulmonary: Clear to auscultation bilaterally, no crackles, wheezing, or rhonchi Abdomen: + Bowel Sounds, soft, nontender, nondistended Vascular: No lower extremity edema Psych: Normal mood and affect. Objective Objective Clinical Data: Abnormal lab results 07/20/18 07/20/18 Range/Units 06:50 06:50 WBC 13.37 H D (4.4-10.8) k/cumm RBC 4.00 L (4.50-6.00) m/cumm Hgb 13.2 L (13.5-17.5) g/dL Hct 39.6 L (40.0-50.0) % MCV 99.0 H (80-95) fL Absolute Neutrophils 12.61 H (1.2-6.7) k/cumm Absolute Lymphocytes 0.60 L (1.2-3.4) k/cumm BUN 23 H (7-18) mg/dL Glucose 128 H (70-100) mg/dL Calcium 8.1 L (8.5-10.1) mg/dL Vital Signs Temperature 36.6 C 07/20/18 16:27 Temperature Source Tympanic 07/20/18 16:27 Pulse 88 07/20/18 16:27 Pulse Rhythm Irregular 07/20/18 11:35 Respiratory Rate 18 07/20/18 16:27 Respiratory Effort 07/20/18 11:35 Respiratory Depth Shallow 07/20/18 11:35 Respiratory Pattern Normal 07/20/18 11:35 Blood Pressure 119/72 07/20/18 16:27 Pulse Oximetry 98 07/20/18 16:27 Respiratory End-tidal CO2 33 07/19/18 11:35 Oxygen Delivery Method Room Air 07/20/18 16:27 Oxygen Flow Rate 0 07/20/18 16:27 Fraction of Inspired Oxygen (FIO2) 21 07/19/18 10:24 Pain Level 0 07/19/18 13:23 Intake & Output 07/19/18 07/20/18 07/20/18 23:59 11:59 23:59 Intake Total 638.667 / 2138.667 556 / 1196 640 / 1196 Output Total 1050 / 1050 750 / 1100 350 / 1100 Balance -411.333 / 1088.667 -194 / 96 290 / 96 Weight 65.9 kg Intake: IV 638.667 / 2138.667 556 / 556 Oral 640 / 640 Output: Urine 1050 / 1050 750 / 1100 350 / 1100 Other: Urine Color Light Ramona Yellow Dark Ramona Urine Appearance Clear Clear Clear Urine Odor Normal Comment PACU. spontaneous void after redd removal Stool Size Small Stool Characteristics Formed Green Emesis Description None Voiding Methods Toilet Toilet Laboratory Results WBC 13.37 k/cumm (4.4-10.8) H D 07/20/18 06:50 RBC 4.00 m/cumm (4.50-6.00) L 07/20/18 06:50 Hgb 13.2 g/dL (13.5-17.5) L 07/20/18 06:50 Hct 39.6 % (40.0-50.0) L 07/20/18 06:50 MCV 99.0 fL (80-95) H 07/20/18 06:50 MCH 33.0 pg (27.0-33.0) 07/20/18 06:50 MCHC 33.3 g/dL (32.0-36.0) 07/20/18 06:50 RDW 12.1 % (11.8-14.1) 07/20/18 06:50 Plt Count 171 x1000/uL (130-400) 07/20/18 06:50 MPV 10.7 fL (8.0-11.0) 07/20/18 06:50 Immature Gran % 0.1 07/20/18 06:50 Neutrophils % 94.3 07/20/18 06:50 Lymphocytes % 4.5 07/20/18 06:50 Monocytes % 1.0 07/20/18 06:50 Eosinophils % 0.0 07/20/18 06:50 Basophils % 0.1 07/20/18 06:50 Absolute Neutrophils 12.61 k/cumm (1.2-6.7) H 07/20/18 06:50 Absolute Lymphocytes 0.60 k/cumm (1.2-3.4) L 07/20/18 06:50 Absolute Monocytes 0.13 k/cumm (0.11-0.7) 07/20/18 06:50 Absolute Eosinophils 0.00 k/cumm (0.0-0.7) 07/20/18 06:50 Absolute Basophils 0.01 k/cumm (0.0-0.2) 07/20/18 06:50 D-Dimer 359 ng/mlFEU (<500) 07/19/18 08:50 Sample Site Not Applicable 07/19/18 08:50 pCO2 51 mmHg (34-47) H 07/19/18 08:50 pO2 545 mmHg (83-108) H 07/19/18 08:50 O2 Saturation Cancelled 07/19/18 08:54 ABG pH 7.32 (7.35-7.45) L 07/19/18 08:50 ABG HCO3 26 mmol/L (22-28) 07/19/18 08:50 ABG Total CO2 Cancelled 07/19/18 08:54 ABG Base Excess -0.3 mmol/L (-3-3) 07/19/18 08:50 Oxygen Liter Flow Cancelled 07/19/18 08:54 FiO2 Cancelled 07/19/18 08:54 Sodium 140 mmol/L (136-145) 07/20/18 06:50 Potassium 4.4 mmol/L (3.5-5.1) 07/20/18 06:50 Chloride 106 mmol/L (98-107) 07/20/18 06:50 Carbon Dioxide 25.6 mmol/L (21.0-32.0) 07/20/18 06:50 Anion Gap 8.4 mmol/L (3-11) 07/20/18 06:50 BUN 23 mg/dL (7-18) H 07/20/18 06:50 Creatinine 0.97 mg/dL (0.70-1.30) 07/20/18 06:50 Estimated GFR/1.73 m2 >= 60.00 (mL/min/1.73m2) 07/20/18 06:50 Glucose 128 mg/dL (70-100) H 07/20/18 06:50 Calcium 8.1 mg/dL (8.5-10.1) L 07/20/18 06:50 Magnesium 1.8 mg/dL (1.8-2.4) 07/20/18 06:50 Total Bilirubin 1.1 mg/dL (0.2-1.0) H 07/19/18 11:40 AST 21 U/L (15-37) 07/19/18 11:40 ALT 7 U/L (12-78) L 07/19/18 11:40 Alkaline Phosphatase 95 U/L (46-116) 07/19/18 11:40 Troponin I 0.05 ng/mL (0.00-0.06) 07/19/18 13:13 Total Protein 6.7 g/dL (6.4-8.2) 07/19/18 11:40 Albumin 3.1 g/dL (3.4-5.0) L 07/19/18 11:40
[2018-07-20] MEDS: Mirtazapine 15 MG TAB PO (21:31)
[2018-07-21 00:30] VITALS: BP 128/84; PULSE 104; RESP 19; TEMP 36.6; O2SAT 99
[2018-07-21 03:43] VITALS: BP 105/68; PULSE 86; RESP 18; TEMP 36.7; O2SAT 95
[2018-07-21] MEDS: Levothyroxine 88 MCG TAB PO (06:26)
[2018-07-21 07:05] VITALS: PULSE 112
[2018-07-21] MEDS: Dorzolamide 2% 10 ML BTL OD (08:01)
[2018-07-21] MEDS: Apixaban 2.5 MG TAB PO (08:01)
--- NOTE | 2018-07-21 08:01 | DSE_ITS ---
DS: Diagnosis Discharge Diagnosis (1) Altered mental state: Status: Acute Discharge Plan Disposition Patient Disposition: HOME Condition: Improving Discharge Details Reason For Visit: CVA Admit Date/Time: 07/19/18 10:22 Admit Provider: Eric Rose Attending Provider: Marco Betancur Hospital Course Hospital Course: Patient developed profound hypotension following induction of anesthesia with propofol only as the agent initially it was unclear if this was the the cause of his hypotension but all other causes were ruled out he was treated with supportive oxygen and intubation and underwent emergency CT scan without contrast as well as a CT a to rule out pulmonary embolism and they were negative. He was followed by the hospitalist and maintain on telemetry for 48 hours. He had complete clearance of all of his mental faculties within approximately 2-1/2 hours of the induction of anesthesia no surgery was performed on his left shoulder but it was injected just prior to realizing that we would not be able to proceed with any surgical intervention for excision of his distal clavicle. Laboratory studies including electrolytes CBC and troponin was negative for cardiac event. Redd catheter was removed at 24 hours and the patient was taken a normal diet. He was maintained on telemetry which was unremarkable other than showing chronic atrial fibrillation he was restarted on his Eliquis on 07/20/18. Home Meds and New Rx's Prescriptions: No Action dorzolamide 10 ML drops 1 drp Ophthalmic BID RF: 0 levothyroxine 88 MCG tablet 88 mcg PO DAILY Qty: 60 RF: 1 Eliquis 2.5 MG tablet 2.5 mg PO BID Qty: 60 RF: 3 Centrum Silver 1 EACH tablet 1 tab PO DAILY RF: 0 diltiazem HCl [Cartia XT] 120 mg Capsule,Extended Release 24hr 120 mg PO DAILY RF: 0 mirtazapine 15 mg Tablet 15 mg PO HS RF: 0 Discharge Instructions Additional Instructions: Take all of your usual medications as before take Tylenol for any shoulder pain you may use both shoulders as comfort allows follow-up with Dr. Betancur in approximately 2 weeks for repeat evaluation Care Plan Goals: Continued independent function. Activity:: Activity as Tolerated Equipment/Supplies:: No Equipment Needed Diet:: As Tolerated Discharge Orders Discharge Orders: Discharge Order (Routine); Ordered 07/21/18 Ordered By: Marco Betancur DS: Data Vitals/I&O Vitals and I&O: Vital Signs Temperature 98.1 F 07/21/18 03:43 Temperature Source Tympanic 07/21/18 03:43 Pulse 86 07/21/18 03:43 Pulse Rhythm Irregular 07/20/18 21:30 Respiratory Rate 18 07/21/18 03:43 Respiratory Effort 07/20/18 21:30 Respiratory Depth Normal 07/20/18 21:30 Respiratory Pattern Normal 07/20/18 21:30 Blood Pressure 105/68 07/21/18 03:43 Pulse Oximetry 95 07/21/18 03:43 Respiratory End-tidal CO2 33 07/19/18 11:35 Oxygen Delivery Method Room Air 07/21/18 03:43 Oxygen Flow Rate 0 07/21/18 03:43 Fraction of Inspired Oxygen (FIO2) 21 07/19/18 10:24 Pain Level 0 07/19/18 13:23 Intake & Output 07/20/18 07/20/18 07/21/18 11:59 23:59 11:59 Intake Total 556 / 1196 640 / 1196 Output Total 750 / 1500 750 / 1500 800 / 800 Balance -194 / -304 -110 / -304 -800 / -800 Weight 145 lb 4.554 oz Intake: IV 556 / 556 Oral 640 / 640 Output: Urine 750 / 1500 750 / 1500 800 / 800 Other: Urine Color Yellow Light Ramona Yellow Urine Appearance Clear Clear Clear Urine Odor Normal Normal Comment spontaneous void after redd removal Voiding Methods Toilet Toilet Toilet [facility] Medical History Atrial fibrillation Essential hypertension Glaucoma Hiatal hernia Reflex sympathetic dystrophy of upper extremity Surgical History Colonoscopy - MAC HEMITHYROIDECTOMY Family History Mother Heart disease Father Heart disease Sister No problems noted. Brother No problems noted. Grandfather Diabetes Grandfather No problems noted. Social History Smoking and Tabacco status: Former Tobacco Use
[2018-07-21 08:02] VITALS: BP 135/77; PULSE 79; RESP 18; TEMP 36; O2SAT 98
[2018-07-21 09:25] VITALS: O2SAT 98
--- NOTE | 2018-07-21 09:41 | CMDISCH_ITS ---
- If Service Date Differs Date of service: 07/21/18 Time of Service: 09:37 LACE Index Scoring Tool - Questions: Length of Stay (in days): 3 Acuity (Admit via E.D.?): No Comorbidities: Any Tumor E.D. Visits: 0 - Answers: Total Score: 5 Risk of Readmission: Low Risk Care Management Discharge Reason for Hospitalization: AMS Discharge Plan: True, to be discharged home today, his family will transport. Yuan plan to follow-up with Dr. Betancur in 2 weeks as directed. CM [facility]. True has atrial fibrillation he has restarted his Eliquis on 07/20/2018. No additional services will be needed at time of discharge. True was able to complete his advance directives today. He will be discharged home with Ziehl patch. He states his follow-up is with Dr. Aguero at [facility] and he is already scheduled for an appointment on 22 July. Patient/Family Education Needs: Discharge education, limitations, follow-up plan of care, ask me 3 and self-management.
--- NOTE | 2018-08-13 15:48 | ZIOP_ITS ---
ZIO PATCH REPORT DATE OF STUDY: August 13, 2018 STUDY INDICATION: Syncope. REQUESTING PROVIDER: Eric Rose M.D. FINDINGS: The patient was monitored for 14 days. The patient was in atrial fibrillation throughout, average heart rate 89 beats per minutes, range 40-197 beats per minute. There was rare ectopy. There was on ventricular run lasting 4 beats. Average heart rate 128 beats per minute. There were no pauses >3 seconds. There was no higher-degree heart block. There were 11 patient events. All events correlated with atrial fibrillation with heart rates between 60 and 163 beats per minute. FINAL INTERPRETATION: Atrial fibrillation with controlled ventricular response.
== END 2018-07-21 12:30 | disposition home or self-care (01) | DRG 948 ==
LOC: MS 13:49
PROVIDERS: Internal Medicine; Nurse Anesthetist, Certified Registered; Admitting Provider Family Medicine; Visit Provider Orthopaedic Surgery
PROC: 3E0U33Z Introduction of Anti-inflammatory into Joints, Percutaneous Approach (ICD-10-PCS; CPT 23120; principal; 2018-07-19 07:30)
DX: R41.82 Altered mental status, unspecified (principal); I95.2 Hypotension due to drugs; R09.02 Hypoxemia; T41.295A Adverse effect of other general anesthetics, initial encounter; Y92.234 Operating room of hospital as the place of occurrence of the external cause; M19.012 Primary osteoarthritis, left shoulder; M75.82 Other shoulder lesions, left shoulder; M25.512 Pain in left shoulder; G89.29 Other chronic pain; I10 Essential (primary) hypertension
CPT/HCPCS: 23120; 20610; 0296T; 36415; 71275; 80048; 80053; 82805; 85027; 93225; 99220; 99232; NC; 36600; 70450; 83735; 84484; 85025; 85379; 94002; 99223; J1040; J3010; J3490

== ENCOUNTER 2018-08-13 08:05 | Outpatient (CLI) | payer MEDICARE, BC, SELFPAY | END 2018-08-13 08:25 | PROVIDERS: PCP Family Medicine; Referring Provider Internal Medicine; Visit Provider Student in an Organized Health Care Education/Training Program | DX: R55 Syncope and collapse (principal); I48.91 Unspecified atrial fibrillation | CPT/HCPCS: 0298T ==

== ENCOUNTER → 2018-08-20 08:31 | Outpatient (BNVA) | payer MEDICARE, BC, SELFPAY | PROVIDERS: PCP Family Medicine; Visit Provider Orthopaedic Surgery | DX: M75.81 Other shoulder lesions, right shoulder (principal) | CPT/HCPCS: 20610; 99211; 99213; J1030 ==

== ENCOUNTER → 2018-12-12 11:12 | Outpatient (BNVA) | payer MEDICARE, BC, SELFPAY | PROVIDERS: PCP Family Medicine; Referring Provider Family Medicine; Visit Provider Orthopaedic Surgery | DX: M19.012 Primary osteoarthritis, left shoulder (principal); I95.2 Hypotension due to drugs | CPT/HCPCS: 20610; 99211; 99213; J1030 ==

== ENCOUNTER 2019-03-26 11:02 | Outpatient (CLI) | payer MEDICARE, BC, SELFPAY ==
--- NOTE | 2019-03-26 10:58 | DI.RAD_ITS ---
EXAM: XR SHOULDER RT COMPLETE 2+V INDICATION: shoulder pain. COMPARISON: No exams were available for comparison TECHNIQUE: 2D digital imaging was performed. FINDINGS: The bones are normally mineralized. No suspicious lytic or sclerotic lesions are present. No acute fracture or dislocation is seen. The joint spaces are well maintained. The soft tissues are unremar kable. IMPRESSION: No acute abnormality. If there is concern for internal derangement, an MRI should be considered for further evaluation.
--- NOTE | 2019-03-26 10:58 | DI.RAD_ITS ---
EXAM: XR SHOULDER LT COMPLETE 2+V INDICATION: shoulder pain. COMPARISON: XR SHOULDER RT COMPLETE 2+V from 03/26/2019 TECHNIQUE: 2D digital imaging was performed. FINDINGS: Bones are intact and normally mineralized. No suspicious lytic or sclerotic lesions are present. No acute fracture or dislocation is seen. The articular surfaces appear well maintained. The soft tis sues are unremarkable. IMPRESSION: No acute abnormality. If there is concern for internal derangement, an MRI should be considered for further evaluation.
== END 2019-03-26 11:22 ==
PROVIDERS: PCP Family Medicine; Referring Provider Family Medicine; Visit Provider Student in an Organized Health Care Education/Training Program
DX: M25.511 Pain in right shoulder (principal); M25.512 Pain in left shoulder; M19.011 Primary osteoarthritis, right shoulder; M75.102 Unspecified rotator cuff tear or rupture of left shoulder, not specified as traumatic; M75.81 Other shoulder lesions, right shoulder
CPT/HCPCS: 20610; 99214; 73030; J1040

== ENCOUNTER 2019-04-15 21:49 | Emergency (ER) | payer MEDICARE, BC, SELFPAY ==
[2019-04-15 21:56] VITALS: BP 134/90; PULSE 62; RESP 18; TEMP 36.2; O2SAT 95
--- NOTE | 2019-04-15 21:58 | ED.GENADUL_ITS ---
Discharge Plan Disposition Patient Disposition: HOME Condition: Good Discharge Details Chief Complaint: Abd Prob Clinical Impression: Calculus of distal right ureter Primary Care Provider: Liliam Aguero ED Provider: Bucky Ralph [place] Meds and New Rx's Prescriptions: Continued citalopram 20 mg tablet 20 mg PO DAILY RF: 0 donepezil 10 mg tablet 10 mg PO DAILY RF: 0 dorzolamide 10 ML drops 1 drp Ophthalmic BID RF: 0 levothyroxine 88 MCG tablet 88 mcg PO DAILY Qty: 60 RF: 1 Centrum Silver 1 EACH tablet 1 tab PO DAILY RF: 0 Eliquis 5 mg Tablet 5 mg DAILY RF: 0 diltiazem HCl [Cartia XT] 120 mg Capsule,Extended Release 24hr 120 mg PO DAILY RF: 0 mirtazapine 15 mg Tablet 15 mg PO HS RF: 0 Discharge Instructions Instructions: Renal Colic (ED) Additional Instructions: Please drink plenty of fluids and stay hydrated. Take 1 g of acetaminophen every 6 hours for pain. Strain urine so you know when the stone has passed. Follow-up with primary care at end of week if no stone passage and continue symptoms. May need referral to urology, Dr. Domínguez, if no stone passage by next week. Return to ED for uncontrolled pain, fever, persistent vomiting. Referrals: Liliam Aguero [Primary Care Provider] - Discharge Data Discharge Date/Time-TO BE ENTERED AT DEPARTURE: 04/16/19 01:15 Medical Decision Making <RASHIDA Cardona - Last Filed: 04/16/19 20:25> Patient is an 83 year old male with c/c of RLQ and right flank pain. States that pain began a few hours prior to arrival. [place] PMH pertinent for thyroid malignant neoplastm, paroxysmal atrial fibrillation, hiatal hernia, depression. Endorses nausea, no vomiting. Has had 3 normal BM this evening. Has had difficulty with urination. Reports discomfort at the tip of his penis during urination that also began at onset of these symptoms. Pain in his right flank. States that pain has waxed and waned, currently no pain but is endorsing nausea. Patient concerned that he may have appendicitis. P On exam, patient appears nontoxic. VS WNL. No pain over McBurney's point. Pain is inferior and lateral to this, no pain elicited on exam. No pulsatile mass. Right CVA tenderness with percussion. Patient reports that he has had kidney stones historically, states this does feel similar. This CT reviewed by radiologist: FINDINGS: Heart: Mild cardiomegaly. The IVC appears dilated suggesting elevated right heart pressures. Liver: Benign-appearing right hepatic probable cysts. No hepatic masses on noncontrast imaging. Gallbladder and bile ducts: No calcified stones. No ductal dilation. Pancreas: No ductal dilation. No masses. Spleen: No splenomegaly or focal lesions. Adrenals: Thickened slightly nodular adrenal glands, statistically probably hypertrophy and/or small adenomas. Kidneys and ureters: 4 mm distal right ureteral stone causing moderate right hydronephrosis. Right nephrolithiasis. No left hydronephrosis. No left nephrolithiasis. Stomach and bowel: Descending and sigmoid diverticulosis. No diverticulitis. No focal pathology in the remainder of the colon. No focal pathology in the small bowel. Appendix: Normal morphology of the appendix. Intraperitoneal space: No free air. No significant fluid collection. Vasculature: Mild aortoiliac atherosclerosis. No aortic aneurysm. Lymph nodes: No significantly enlarged lymph nodes. Bladder: Unremarkable as visualized. Reproductive: Mild prostatic enlargement. Bones/joints: Degenerative changes in the spine. No acute fracture or subluxation. Soft tissues: No suspcious lesions. IMPRESSION: 1. 4 mm distal right ureteral stone causing moderate right hydronephrosis. 2. Right nephrolithiasis. 3. Incidental findings as described. Labs reviewed. No leukocytosis. BUN is slightly elevated 26 which is typical for the patient. Creatinine is 1.1. Labs otherwise without significant abnormality. Patient initially had declined any analgesics. However, after discussing the findings, he is requesting pain medication. He does not appear acutely uncomfortable. Will give oral Tylenol. Patient is anticoagulated on Eliquis. He has not been able to give a urine sample as of yet. Ultrasound performed by nursing staff reveals 80 cc in the patient's bladder. He is receiving hydration. At the end of my shift, urinalysis is pending. Care transition to Dr. Ralph with urinalysis and final disposition pending. <Bucky Ralph MD - Last Filed: 04/16/19 01:09> Patient signed over to me pending results of his urinalysis. He has received a liter of fluid. He was eventually able to provide urine sample. It is quite concentrated so we will need to continue hydration at home. There is no evidence of infection. He has blood but no white cells. He does still complain of some pain but seems quite comfortable after Tylenol. We will have him continue Tylenol 1 g every 6 hours for pain as needed. Avoid nonsteroidals as he is on Eliquis. Avoid narcotics as he is elderly with history of dementia and would like to avoid any potential complications from narcotic use. Will discharge with strainers. We will have him follow-up with primary care at the end of the week if continued pain. May need referral to urology next week but at 4 mm stone should pass without significant issue. I have discussed this with the patient. Lab Data Lab results reviewed: Yes I reviewed the patient's lab results. HPI <RASHIDA Cardona - Last Filed: 04/16/19 20:25> General Mode of arrival: ambulatory . Date/Time Provider Initiated Documentation: 04/15/19 21:57 . Limitations to Documentation: no limitations . Information obtained by: patient and RN notes reviewed . History of Present Illness 83 year old M presents to the emergency department with the chief complaint of right flank and RLQ pain, described as moderate and similar to prior episodes (hx of nephrolithiasis), with intensity rated at 5. Quality is described as aching, and is localized to the abdomen. Patient reports rad iation to back. Patient started experiencing this hour(s) and it has been intermittent. No relieving factors improve symptom(s), No exacerbating factors reported . Patient notes nausea/vomiting (endorses nausea, no vomiting); denies chest pain, cough, diaphoresis, fever/chills, loss of appetite, rash, shortness of breath and weakness. Patient did receive the fo llowing treatments prior to arrival, none Related Data Home Medications Medication Instructions Recorded Confirmed dorzolamide 1 drp OPHTHALMIC BID drp 07/31/12 04/16/19 Centrum Silver 1 tab PO DAILY 08/01/13 04/16/19 levothyroxine 88 mcg PO DAILY #60 tab-cap 09/10/17 04/16/19 diltiazem HCl [Cartia XT] 120 mg PO DAILY 07/12/18 04/16/19 mirtazapine 15 mg PO HS 07/12/18 08/20/18 citalopram 20 mg tablet 20 mg PO DAILY 03/26/19 04/16/19 donepezil 10 mg tablet 10 mg PO DAILY 03/26/19 04/16/19 Eliquis 5 mg DAILY 04/16/19 04/16/19 Previous Rx's Medication Instructions Recorded levothyroxine 88 mcg PO DAILY #60 tab-cap 09/10/17 Allergies Allergy/AdvReac Type Severity Reaction Status Date / Time propofol AdvReac Severe severe Unverified 03/26/19 10:31 hypotension, unresponsiveness Review of Systems <RASHIDA Cardona - Last Filed: 04/16/19 20:25> Constitutional Constitutional: Reports as per HPI, Denies chills, Denies fatigue, Denies fever(s) and Denies headache(s) ENT Ears, Nose, Mouth, and Throat: Denies headache(s) Cardiovascular Cardiovascular: Reports as per HPI, Denies chest pain and Denies dyspnea Respiratory Respiratory: Reports as per HPI, Denies cough and Denies dyspnea Gastrointestinal Gastrointestinal: Reports as per HPI Genitourinary Genitourinary: Reports dysuria (reports discomfort at the tip of his penis with urination), Reports flank pain (right), Denies penile discharge, Denies scrotal swelling, Denies testicular pain, Denies urinary frequency, Reports urinary hesitancy, Denies urinary incontinence and Denies urinary urgency Musculoskeletal Musculoskeletal: Reports as per HPI and Reports back pain Integumentary/Breasts Skin/Breast: Reports as per HPI and Denies rash Neurologic Neurologic: Reports as per HPI and Denies headache(s) Endocrine Endocrine: Denies fatigue PFSH <RASHIDA Cardona - Last Filed: 04/16/19 20:25> Medical History Atrial fibrillation Essential hypertension Glaucoma Hiatal hernia Reflex sympathetic dystrophy of upper extremity Surgical History Colonoscopy - MAC 09/2001; 03/2009 HEMITHYROIDECTOMY 02/26/17-DR. SIA GLASER;THYROID,LEFT LOBE & ISTHMUS Social History Smoking/Tobacco Use Status: Former Tobacco Use Alcohol Intake: never Drug use: Never Current gender identity: male Do you feel safe in your relationship?: Yes Exam <RASHIDA Cardona - Last Filed: 04/16/19 20:25> Const General: cooperative, healthy appearing, comfortable, no acute distress and well developed Nutritional Appearance: average body habitus and well nourished Orientation: alert and awake [facility] Head: normal to inspection Mouth: moist mucous membranes Resp Effort & Inspection: normal respiratory effort, able to speak in complete sentences and no respiratory distress Auscultation: clear to auscultation bilaterally, no rales, no rhonchi and no wheezes Cardio Rate: regular rate Rhythm: abnormal rhythm irregularly irregular (know hx of a fib) Heart Sounds: S1 normal and S2 normal Bruits: no abdominal aortic bruits GI Inspection: normal to inspection, no abdominal wall ecchymosis, non-distended, no incisions, no visible herniation and no visible pulsation Palpation: soft, no hepatosplenomegaly, not firm, no guarding, no hernias, no masses, no pulsatile masses, not rigid, no splenomegaly and nontender Percussion: normal to percussion Auscultation: normal bowel sounds Abdomen image: 1. area of pain by patient indication, no pain elicited with palpation Back/Spine/Pelvis Back: CVA tenderness (right) Skin General skin exam: no rashes or lesions noted Trauma: no lacerations or abrasions Neuro General: alert and awake Cognition: normal cognition Speech: speech normal Gait: normal gait Psych Appearance: grossly normal and well kempt Mental Status: mental status grossly normal Speech and Movement: speech and movement normal Sign Out <RASHIDA Cardona - Last Filed: 04/16/19 20:25> Sign Out Data: Sign Out Comment: Care transitioned to Dr. Ralph with and final disposition pending. Last updated by Airam Dimas PA at 04/15/19 23:54
--- NOTE | 2019-04-15 22:09 | DI.CT_ITS ---
EXAM: CT RENAL COLIC WO CLINICAL HISTORY: right flank pain, hx of stones TECHNIQUE: Noncontrast COMPARISON: CT chest PE CTA from 07/19/2018 FINDINGS: There is a 4 millimeter stone in the distal right ureter causing moderate right hydronephrosis. An additional tiny nonobstructing stone is seen in the mid right kidney. There is mild right perinephri c stranding. No left renal calculi or left hydronephrosis is seen. The bladder is unremarkable. Th e prostate is mildly enlarged. There is right atrial enlargement as well as left atrial and left quang tricular enlargement. The lung bases are clear. Small low-density lesions are seen in the liver, li masood cysts. There is no biliary dilatation. The gallbladder, spleen and pancreas are unremarkable. There is mild nodularity of the adrenal glands but no focal mass. They appear unchanged when compar ed with previous chest CT from 19 July 2018. Appendix appears normal. There is no small or larg e bowel dilatation or evidence of inflammatory change. Diverticulosis is noted in the sigmoid colon. There are atherosclerotic changes of the abdominal aorta and iliac arteries but no evidence of an a neurysm. Degenerative changes are seen in the lumbar spine. IMPRESSION: Moderate right hydronephrosis secondary to a 4 millimeter stone in the distal right ureter.
[2019-04-15 22:34] LABS: Abs Immature Grans 0.02 k/cumm (0.0-0.09); Absolute Basophil Count 0.05 k/cumm (0.0-0.2); Absolute Lymphocyte Count 1.21 k/cumm (1.2-3.4); Absolute Monocyte Count 0.74 k/cumm (0.11-0.7); Absolute Neutrophil Count 6.61 k/cumm (1.2-6.7); Basophils % 0.6; Eosinophils % 1.1; HGB 14.2 g/dL (13.5-17.5); Immature Grans % 0.2; Lymphocytes % 13.9; Mean Corp. HGB Concentration 32.3 g/dL (32.0-36.0); Mean Corpuscular Hemoglobin 32.6 pg (27.0-33.0); Mean Corpuscular Volume 100.9 fL (80-95); Mean Platelet Volume 10.2 fL (8.0-11.0); Monocytes % 8.5; Neutrophils % 75.7; Platelet Count 181 x1000/uL (130-400); RBC 4.36 m/cumm (4.50-6.00); RBC Distribution Width 12.4 % (11.8-14.1); White Blood Cell Count 8.73 k/cumm (4.4-10.8)
[2019-04-15] MEDS: Lactated Ringers 1,000 ML 125 ML IV (23:00)
[2019-04-15 23:12] LABS: ALT 20 U/L (16-63); AST 21 U/L (15-37); Albumin 3.3 g/dL (3.4-5.0); Alkaline Phosphatase 116 U/L (46-116); Anion Gap 6.5 mmol/L (3-11); BUN 26 mg/dL (7-18); Bilirubin, Total 0.4 mg/dL (0.2-1.0); CO2 29.5 mmol/L (21.0-32.0); Calcium 8.6 mg/dL (8.5-10.1); Chloride 107 mmol/L (98-107); Glucose 125 mg/dL (74-106); Potassium 4.8 mmol/L (3.5-5.1); Sodium 143 mmol/L (136-145); Total Protein 6.8 g/dL (6.4-8.2)
--- NOTE | 2019-04-15 23:15 | DI.VRAD_ITS ---
PROCEDURE INFORMATION: Exam: CT Abdomen And Pelvis Without Contrast Exam date and time: 04/15/2019 22:12 Age: 83 years old Clinical history: Abdominal pain and other: R flank pain; Right; Patient HX: Rlq and R flank pain TECHNIQUE: Imaging protocol: Computed tomography of the abdomen and pelvis without contrast. Radiation optimization: All CT scans at this facility use at least one of these dose optimization techniques: automated exposure control; mA and/or kV adjustment per patient size (includes targeted exams where dose is matched to clinical indication); or iterative reconstruction. COMPARISON: No relevant prior studies available. FINDINGS: Heart: Mild cardiomegaly. The IVC appears dilated suggesting elevated right heart pressures. Liver: Benign-appearing right hepatic probable cysts. No hepatic masses on noncontrast imaging. Gallbladder and bile ducts: No calcified stones. No ductal dilation. Pancreas: No ductal dilation. No masses. Spleen: No splenomegaly or focal lesions. Adrenals: Thickened slightly nodular adrenal glands, statistically probably hypertrophy and/or small adenomas. Kidneys and ureters: 4 mm distal right ureteral stone causing moderate right hydronephrosis. Right nephrolithiasis. No left hydronephrosis. No left nephrolithiasis. Stomach and bowel: Descending and sigmoid diverticulosis. No diverticulitis. No focal pathology in the remainder of the colon. No focal pathology in the small bowel. Appendix: Normal morphology of the appendix. Intraperitoneal space: No free air. No significant fluid collection. Vasculature: Mild aortoiliac atherosclerosis. No aortic aneurysm. Lymph nodes: No significantly enlarged lymph nodes. Bladder: Unremarkable as visualized. Reproductive: Mild prostatic enlargement. Bones/joints: Degenerative changes in the spine. No acute fracture or subluxation. Soft tissues: No suspcious lesions. IMPRESSION: 1. 4 mm distal right ureteral stone causing moderate right hydronephrosis. 2. Right nephrolithiasis. 3. Incidental findings as described. Dictated and Authenticated by: Macarena Hanna MD. Ordering:JANINA Alegria MD
[2019-04-16] MEDS: Acetaminophen 500 MG TAB PO (00:01)
[2019-04-16 00:51] LABS: Bilirubin Negative (Negative); Blood Large (Negative); Clarity Cloudy (Clear); Glucose Negative (Negative); Ketones Negative (Negative); Leukocyte Esterase Negative (Negative); Nitrite Negative (Negative); Specific Gravity >= 1.030 (1.005-1.025); Urobilinogen 0.2 EU/dL (Up TO 0.2); pH 5.5 (5-8)
[2019-04-16 00:54] LABS: Bacteria Few HPF (Negative); C & S Indicated? No; Casts Negative LPF (Negative); Crystals Negative HPF (Negative); Epithelial Cells Rare HPF (Negative); Mucus Trace (Negative); RBC >50 HPF (0-2); WBC 0-2 HPF (0-5)
[2019-04-16 01:03] VITALS: BP 130/85; PULSE 66; RESP 16; TEMP 36.6; O2SAT 95
--- NOTE | 2019-04-16 10:23 | NUR.NOTE ---
Nursing Note: Patient called stating that he was still having pain with his kidney stone. While consulting with the physician the patient hung up. Sharita Castanon.
== END 2019-04-16 01:15 | disposition home or self-care (01) ==
PROVIDERS: Physician Assistant; Emergency Provider Emergency Medicine; PCP Family Medicine
DX: N13.2 Hydronephrosis with renal and ureteral calculous obstruction (principal); C73 Malignant neoplasm of thyroid gland; I10 Essential (primary) hypertension; I48.91 Unspecified atrial fibrillation
CPT/HCPCS: 36415; 80053; 96361; 96374; 99284; 74176; 81003; 81015; 85025

== ENCOUNTER 2019-06-13 14:02 | Outpatient (CLI) | payer MEDICARE, BC, SELFPAY ==
--- NOTE | 2019-06-13 13:56 | DI.CT_ITS ---
EXAM: CT HEAD WO CLINICAL HISTORY: H/O CLOSED HEAD INJURY,Z87,820,MEMORY IMPAIRTMENT,R41.3,? SUBDURAL TECHNIQUE: Noncontrast COMPARISON: CT HEAD FOR STROKE PROTOCOL from 07/19/2018 FINDINGS: No subdural, epidural or parenchymal hemorrhage is seen. Atrophy is again noted. No mass or infarc t is seen. The ventricles are unchanged in size. There is mucous retention within the right maxilla ry sinus and several ethmoid sinuses. The mastoid air cells appear clear. IMPRESSION: Atrophy. No acute abnormality.
== END 2019-06-13 14:22 ==
PROVIDERS: PCP Family Medicine; Visit Provider Internal Medicine
DX: R41.3 Other amnesia (principal); Z87.820 Personal history of traumatic brain injury
CPT/HCPCS: 70450

== ENCOUNTER 2019-06-20 08:58 | Outpatient (CLI) | payer MEDICARE, BC, SELFPAY ==
--- NOTE | 2019-06-20 09:02 | DI.RAD_ITS ---
EXAM: XR CERVICAL SPINE COMP 4-5V CLINICAL HISTORY: ACUTE NECK PAIN, M54.2 TECHNIQUE: COMPARISON: No exams were available for comparison FINDINGS: Eight views were obtained. There is marked disc space narrowing at C5-6 and C6-7 prominent hypertrop hic endplate changes at these levels particularly anteriorly. No vertebral compression seen. Mild f acet hypertrophic degenerative changes noted as well particularly at C4-5 and C5-6. Right neural for chilango not well seen on oblique view. Left neural foramina appear fairly well maintained. IMPRESSION: Degenerative changes of the cervical spine as described above.
== END 2019-06-20 09:18 ==
PROVIDERS: PCP Family Medicine; Visit Provider Family Medicine
DX: M54.2 Cervicalgia (principal); M50.322 Other cervical disc degeneration at C5-C6 level; M50.323 Other cervical disc degeneration at C6-C7 level; M47.812 Spondylosis without myelopathy or radiculopathy, cervical region
CPT/HCPCS: 72050